=== PATIENT | female | born 1935 | race Caucasian/White ===

== ENCOUNTER 2016-09-01 09:49 | Inpatient (IN) | payer OTHER, BC ==
[~2016-09-01] VITALS: Ht 157.5 cm; Wt 84.4 kg
[~2016-09-01 09:49] MED LIST: ACETAMINOPHN-T1 EACH PO; ALENDRONATE SOD40 MG PO; AMPICILLIN TRI500 MG PO; ARICEPT10 MG PO; ASPIR-LOW81 MG PO; ASPIRIN81 M2 PO; AUGMENTIN500 MG PO; AVAPRO75 MG PO; CIPRO250 MG PO; CITALOPRAM HBR10 MG PO; DICLOFENAC SOD100 MG PO; DICLOFENAC SODI75 MG PO; DONEPEZIL HCL5 MG PO; ECOTRIN325 MG PO; ENDOCET 5-3251 EACH PO; Ecotrin PO; FLAGYL250 MG PO; FOLIC ACID1 MG PO; Feosol PO; Folvite PO; LACTINEX,FLO1 PACKET PO; LIPITOR20 MG PO; Levaquin PO; METHOTREXATE2.5 M1 PO; METHOTREXATE2.5 MG PO; METOPROLOL SUCC25 MG PO; OMEPRAZOLE20 M3 PO; PILOCARPINE HCL5 MG PO; POLYMYXIN B-TMP10 ML LEFT EYE; PriLOSEC PO; SALAGEN5 M1 PO; SALAGEN5 MG PO; SENOKOT S,PE1 TABLET PO; TRAMADOL HCL50 MG PO; TREXALL5 MG PO; Toprol XL PO; Tylenol Regular Stre PO; ULTRAM50 MG PO; VOLTAREN75 MG PO; Voltaren PO; [UNRECOGNIZED DRUG - OTHER]
[2016-09-01] MEDS ORDERED: ULTRACET1 TABLET PO (10:03)
[2016-09-01] MEDS ORDERED: IRBESARTAN75 MG PO (10:03)
[2016-09-01] MEDS ORDERED: SINEMET 25-1001 EACH PO (10:06)
[2016-09-01 11:02] LABS: EOSINOPHIL (%) 0 % (0-5); HEMATOCRIT 38.5 % (36.0-46.0); IMMATURE GRANULOCYTE (%) 0.5 % (0.0-0.7); IMMATURE GRANULOCYTE COUNT 0.1 K/uL; INSTRUMENT ABS NEUTROPHIL CT 13.2 K/uL; LYMPHOCYTE COUNT 0.6 K/uL (1.0-2.8); MCH 31.4 PG (29.0-34.0); MCHC 32.5 G/DL (30.0-36.0); MCV 96.7 FL (83-99); MEAN PLAT.VOLUME 10.4 uM^3 (9.5-12.4); MONOCYTE (%) 9.6 % (3-12); MONOCYTE COUNT 1.5 K/uL (0-0.8); NEUTROPHIL (%) 85.6 % (45-76); NEUTROPHIL COUNT 13.2 K/uL (1.8-6.4); PLATELET COUNT 147 K/uL (156-360); RBC DIS.WIDTH-CV 13.7 % (11.8-14.6); RBC DIS.WIDTH-SD 48.7 % (39-53); RED BLOOD COUNT 3.98 M/uL (3.80-5.20); WHITE BLOOD COUNT 15.4 K/uL (4.1-10.2)
[2016-09-01 11:12] LABS: CHLORIDE 105 mEq/L (99-109); POTASSIUM 3.9 mEq/L (3.7-5.4); SODIUM 140 mEq/L (136-147)
[2016-09-01 11:14] LABS: GLUCOSE 126 mg/dL (70-99)
[2016-09-01 11:15] LABS: ANION GAP 9 MEQ/L (2-14)
[2016-09-01 11:16] LABS: TOTAL BILIRUBIN 0.8 mg/dL (0.0-1.0)
[2016-09-01 11:17] LABS: ALKALINE PHOSPHATASE 64 IU/L (3-129)
[2016-09-01 11:18] LABS: GFR ESTIMATE (CALCULATED) > 59 mL/min/
[2016-09-01 11:19] LABS: UREA NITROGEN (BUN) 31 mg/dL (9-23)
[2016-09-01 11:22] LABS: TROP-I INTERPRETATION NEGATIVE; TROPONIN-I < 0.01 ng/mL (0.0-0.30)
[2016-09-01 11:55] LABS: ADD MIUA? YES; BILIRUBIN NEGATIVE; BLOOD MODERATE; COLOR YELLOW ((YELLOW)); GLUCOSE (STRIP) NEGATIVE; KETONES NEGATIVE; LEUKOCYTES LARGE; NITRITE NEGATIVE; PROTEIN (STRIP) 30; SPECIFIC GRAVITY 1.014 (1.000-1.030); UROBILINOGEN 0.2 MG/DL (0.2-1.0)
[2016-09-01 13:22] LABS: BACTERIA 3+ /HPF; EPITHELIAL CELLS RARE /HPF; MUCUS NONE SEEN /LPF; UCUL ADDED? YES
[2016-09-01] MEDS ORDERED: PRILOSEC20 MG PO (13:58)
[2016-09-01 16:00] VITALS: BP 148/63
[2016-09-01 20:07] VITALS: BP 125/55
[2016-09-02 00:04] VITALS: BP 124/60
[2016-09-02 04:21] VITALS: BP 156/68
[2016-09-02 07:02] LABS: ANION GAP 8 MEQ/L (2-14); CHLORIDE 106 MEQ/L (99-109); GFR ESTIMATE (CALCULATED) > 59 mL/min/; GLUCOSE 96 mg/dL (70-99); POTASSIUM 3.5 MEQ/L (3.7-5.4); SAMPLE HEMOLYSIS CHECK 0; SAMPLE ICTERIC CHECK 0; SAMPLE LIPEMIA CHECK 0; SODIUM 138 MEQ/L (136-147); UREA NITROGEN (BUN) 20 mg/dL (9-23)
[2016-09-02 07:04] LABS: HEMATOCRIT 32.9 % (36.0-46.0); MCH 31.8 PG (29.0-34.0); MCHC 32.5 G/DL (30.0-36.0); MCV 97.6 FL (83-99); MEAN PLAT.VOLUME 10.8 uM^3 (9.5-12.4); PLATELET COUNT 116 K/uL (156-360); RBC DIS.WIDTH-CV 13.9 % (11.8-14.6); RBC DIS.WIDTH-SD 49.3 % (39-53); RED BLOOD COUNT 3.37 M/uL (3.80-5.20)
[2016-09-02 09:06] VITALS: BP 131/62
[2016-09-02 12:10] VITALS: BP 148/74
[2016-09-02 16:01] VITALS: BP 140/72
[2016-09-02 20:01] VITALS: BP 137/63
[2016-09-03 01:00] VITALS: BP 128/60
[2016-09-03 05:27] VITALS: BP 140/88
[2016-09-03 08:30] VITALS: BP 165/77
[2016-09-03 10:51] LABS: ANION GAP 5 MEQ/L (2-14); CHLORIDE 106 MEQ/L (99-109); POTASSIUM 3.5 MEQ/L (3.7-5.4); SAMPLE HEMOLYSIS CHECK 0; SAMPLE ICTERIC CHECK 0; SAMPLE LIPEMIA CHECK 0; SODIUM 135 MEQ/L (136-147)
[2016-09-03 10:56] LABS: GFR ESTIMATE (CALCULATED) > 59 mL/min/; GLUCOSE 119 mg/dL (70-99); UREA NITROGEN (BUN) 11 mg/dL (9-23)
[2016-09-03 11:50] VITALS: BP 175/81; BP 200/81
[2016-09-03 16:43] VITALS: BP 185/87
[2016-09-03 19:00] VITALS: BP 161/72
[2016-09-04 00:11] VITALS: BP 154/72
[2016-09-04 04:27] VITALS: BP 142/64
[2016-09-04] MEDS ORDERED: KEFLEX500 MG PO (07:22)
[2016-09-04 07:30] LABS: ANION GAP 7 MEQ/L (2-14); CHLORIDE 107 MEQ/L (99-109); GFR ESTIMATE (CALCULATED) > 59 mL/min/; GLUCOSE 92 mg/dL (70-99); POTASSIUM 3.9 MEQ/L (3.7-5.4); SAMPLE HEMOLYSIS CHECK 0; SAMPLE ICTERIC CHECK 0; SAMPLE LIPEMIA CHECK 0; SODIUM 141 MEQ/L (136-147); UREA NITROGEN (BUN) 11 mg/dL (9-23)
[2016-09-04 08:04] VITALS: BP 135/67
== END 2016-09-04 15:30 | disposition home health service (06) | DRG 690 ==
LOC: EME 09:49 → EDOF 13:11 → 5WEST 15:53
PROVIDERS: Emergency Medicine; Internal Medicine; Nurse Practitioner Adult Health
DX: N39.0 Urinary tract infection, site not specified (principal); B96.20 Unspecified Escherichia coli [E. coli] as the cause of diseases classified elsewhere; E87.6 Hypokalemia; G31.83 Neurocognitive disorder with Lewy bodies; I10 Essential (primary) hypertension; J44.9 Chronic obstructive pulmonary disease, unspecified; F32.9 Major depressive disorder, single episode, unspecified; K21.9 Gastro-esophageal reflux disease without esophagitis; E78.5 Hyperlipidemia, unspecified; M06.9 Rheumatoid arthritis, unspecified; D69.6 Thrombocytopenia, unspecified; Z79.82 Long term (current) use of aspirin; Z88.5 Allergy status to narcotic agent; Z91.040 Latex allergy status; Z87.891 Personal history of nicotine dependence; Z91.81 History of falling
CPT/HCPCS: 70450; 71020; 72131; 80048; 80053; 81003; 83605; 84484; 85025; 85027; 87077; 87086; 87186; 93005; 99202; 99281; 99285; G0378; G8978 GP CJ; J0696; J1650; J7030; J7050

== ENCOUNTER 2017-06-17 08:23 | Observation (INO) | payer OTHER, BC ==
[~2017-06-17 08:23] MED LIST changes: +ASPIR 8181 M1 PO; -ASPIRIN81 M2 PO; +IRBESARTAN75 MG PO; +KEFLEX500 MG PO; +PRILOSEC20 MG PO; +SINEMET 25-1001 EACH PO; +ULTRACET1 TABLET PO
[2017-06-17 08:48] LABS: BASOPHIL (%) 0.4 % (0-1); EOSINOPHIL (%) 0.8 % (0-5); EOSINOPHIL COUNT 0.1 K/uL (0-0.3); HEMOGLOBIN 13.4 G/DL (11.9-15.5); IMMATURE GRANULOCYTE (%) 0.5 % (0.0-0.7); LYMPHOCYTE (%) 9.6 % (15-42); MCH 31.3 PG (29.0-34.0); MCHC 33.5 G/DL (30.0-36.0); MCV 93.5 FL (83-99); MONOCYTE (%) 7.7 % (3-12); MONOCYTE COUNT 0.8 K/uL (0-0.8); NEUTROPHIL COUNT 8.8 K/uL (1.8-6.4); PLATELET COUNT 160 K/uL (156-360); RBC DIS.WIDTH-CV 13.5 % (11.8-14.6); RBC DIS.WIDTH-SD 46.4 % (39-53); RED BLOOD COUNT 4.28 M/uL (3.80-5.20); WHITE BLOOD COUNT 10.8 K/uL (4.1-10.2)
[2017-06-17 09:03] LABS: AMYLASE 43 IU/L (1-118); CHLORIDE 106 mEq/L (99-109); POTASSIUM 3.9 mEq/L (3.7-5.4); SODIUM 137 mEq/L (136-147)
[2017-06-17 09:05] LABS: GLUCOSE 104 mg/dL (70-99)
[2017-06-17 09:08] LABS: CREATININE 0.8 mg/dL (0.6-1.3); GFR ESTIMATE (CALCULATED) > 59 mL/min/; SERUM ETHYL ALCOHOL < 10 mg/dL; TROP-I INTERPRETATION NEGATIVE; TROPONIN-I < 0.01 ng/mL (0.0-0.30)
[2017-06-17 09:09] LABS: CK-MB 1.9 ng/mL (0.0-4.9); UREA NITROGEN (BUN) 29 mg/dL (9-23)
[2017-06-17 09:11] LABS: LIPASE 65 U/L (1.0-51.0)
[2017-06-17 09:12] LABS: CKMB RELATIVE INDEX 2.8 (0.0-3.9); CREATINE KINASE 69 IU/L (1-294); TOTAL CK 69 IU/L (1-294)
[2017-06-17 09:38] LABS: APPEARANCE SL.HAZY ((CLEAR)); BILIRUBIN NEGATIVE; BLOOD NEGATIVE; COLOR YELLOW ((YELLOW)); GLUCOSE (STRIP) NEGATIVE; KETONES NEGATIVE; LEUKOCYTES MODERATE; NITRITE POSITIVE; PROTEIN (STRIP) NEGATIVE; SPECIFIC GRAVITY 1.018 (1.000-1.030); UROBILINOGEN 0.2 MG/DL (0.2-1.0)
[2017-06-17 09:48] LABS: BACTERIA 3+ /HPF; EPITHELIAL CELLS NONE SEEN /HPF; MUCUS NONE SEEN /LPF; RED BLOOD CELLS 0-5 /HPF (0-5); UCUL ADDED? YES; WHITE BLOOD CELLS 30-40 /HPF (0-5)
[2017-06-17 09:51] LABS: AMPHETAMINE NEGATIVE (500 ng/mL); BARBITURATES NEGATIVE (200 ng/mL); BENZODIAZEPINES NEGATIVE (150 ng/mL); BUPRENORPHINE NEGATIVE (10 ng/mL); COCAINE NEGATIVE (150 ng/mL); METHADONE NEGATIVE (200 ng/mL); METHAMPHETAMINE NEGATIVE (500 ng/mL); OPIATES (MORPHINE) PRESUMPTIVE POSITIVE (100 ng/mL); OXYCODONE NEGATIVE (100 ng/mL); PHENCYCLIDINE NEGATIVE (25 ng/mL); PROPOXYPHENE NEGATIVE (300 ng/mL); THC CANNABINOIDS NEGATIVE (50 ng/mL); TRICYCLIC ANTIDEPRESSANTS NEGATIVE (300 ng/mL)
[2017-06-17] MEDS ORDERED: LEUCOVORIN CALCI5 MG PO (12:24)
[2017-06-17] MEDS ORDERED: METHOTREXATE2.5 MG PO (12:25)
[2017-06-17 20:19] VITALS: BP 140/88
[2017-06-18 00:11] VITALS: BP 173/74
[2017-06-18 05:15] VITALS: BP 143/73
[2017-06-18 05:43] LABS: HEMOGLOBIN 12.5 G/DL (11.9-15.5); MCH 30.6 PG (29.0-34.0); MCHC 32.1 G/DL (30.0-36.0); MCV 95.4 FL (83-99); PLATELET COUNT 173 K/uL (156-360); RBC DIS.WIDTH-CV 13.8 % (11.8-14.6); RBC DIS.WIDTH-SD 48.3 % (39-53); RED BLOOD COUNT 4.09 M/uL (3.80-5.20); WHITE BLOOD COUNT 8.4 K/uL (4.1-10.2)
[2017-06-18 06:05] LABS: CHLORIDE 103 MEQ/L (99-109); CREATININE 0.8 MG/DL (0.6-1.3); GFR ESTIMATE (CALCULATED) > 59 mL/min/; GLUCOSE 124 mg/dL (70-99); POTASSIUM 4.2 MEQ/L (3.7-5.4); SODIUM 139 MEQ/L (136-147); UREA NITROGEN (BUN) 23 mg/dL (9-23)
[2017-06-18 09:02] VITALS: BP 134/60
[2017-06-18 11:24] VITALS: BP 122/59
[2017-06-18] MEDS ORDERED: CEFTIN500 MG PO (12:16)
== END 2017-06-18 15:22 | disposition home or self-care (01) ==
LOC: TRA 08:23 → EDOF 10:31 → 3EAST 10:31 → EDOF 10:31 → ENRESERV 10:40 → EDOF 10:43 → ENRESERV 15:41 → 3EAST 20:06
PROVIDERS: Emergency Medicine; Internal Medicine
PROC: 3E0234Z Introduction of Serum, Toxoid and Vaccine into Muscle, Percutaneous Approach (ICD-10-PCS; principal; 2017-06-17)
DX: S06.339A Contusion and laceration of cerebrum, unspecified, with loss of consciousness of unspecified duration, initial encounter (principal); S01.01XA Laceration without foreign body of scalp, initial encounter; S80.01XA Contusion of right knee, initial encounter; B96.20 Unspecified Escherichia coli [E. coli] as the cause of diseases classified elsewhere; N39.0 Urinary tract infection, site not specified; I10 Essential (primary) hypertension; F03.90 Unspecified dementia, unspecified severity, without behavioral disturbance, psychotic disturbance, mood disturbance, and anxiety; W18.30XA Fall on same level, unspecified, initial encounter; Y92.129 Unspecified place in nursing home as the place of occurrence of the external cause; D69.6 Thrombocytopenia, unspecified; M06.9 Rheumatoid arthritis, unspecified; Z87.440 Personal history of urinary (tract) infections; J44.9 Chronic obstructive pulmonary disease, unspecified; Z86.73 Personal history of transient ischemic attack (TIA), and cerebral infarction without residual deficits; H35.30 Unspecified macular degeneration; E78.5 Hyperlipidemia, unspecified; Z88.5 Allergy status to narcotic agent; Z88.8 Allergy status to other drugs, medicaments and biological substances; Z91.040 Latex allergy status; Z23 Encounter for immunization
CPT/HCPCS: 70450; 71260; 72125; 72129; 72132; 73030; 73560; 74177; 80048; 81003; 82150; 82550; 82553; 83690; 84484; 84999; 85025; 85027; 86850; 86900; 86901; 87077; 87086; 87186; 97530 GO; G0378; G0480; G8978 GP CJ; G8979 GP CI; G8980 CJ; G8987 GO CJ; G8988 CI; G8989 CJ; J0696; J2270; J2405

== ENCOUNTER 2017-06-20 17:09 | Inpatient (IN) | payer OTHER ==
[~2017-06-20] VITALS: Ht 160 cm; Wt 92.1 kg
[~2017-06-20 17:09] MED LIST changes: +CEFTIN500 MG PO; -CITALOPRAM HBR10 MG PO; +CITALOPRAM HBR20 MG PO; +LEUCOVORIN CALCI5 MG PO
[2017-06-20 20:05] LABS: APPEARANCE TURBID ((CLEAR)); BILIRUBIN NEGATIVE; BLOOD MODERATE; COLOR AMBER ((YELLOW)); GLUCOSE (STRIP) NEGATIVE; KETONES NEGATIVE; LEUKOCYTES LARGE; NITRITE NEGATIVE; PROTEIN (STRIP) 30; SPECIFIC GRAVITY 1.024 (1.000-1.030); UROBILINOGEN 0.2 MG/DL (0.2-1.0)
[2017-06-20 20:36] LABS: ALBUMIN 3.4 g/dL (3.2-4.8)
[2017-06-20 20:37] LABS: CHLORIDE 107 mEq/L (99-109); POTASSIUM 3.8 mEq/L (3.7-5.4); SODIUM 140 mEq/L (136-147)
[2017-06-20 20:39] LABS: TOTAL PROTEIN 5.9 g/dL (6.4-8.3)
[2017-06-20 20:41] LABS: GLUCOSE 92 mg/dL (70-99); TOTAL BILIRUBIN 0.5 mg/dL (0.0-1.0)
[2017-06-20 20:42] LABS: ALKALINE PHOSPHATASE 64 IU/L (3-129)
[2017-06-20 20:43] LABS: CREATININE 0.8 mg/dL (0.6-1.3); GFR ESTIMATE (CALCULATED) > 59 mL/min/
[2017-06-20 20:44] LABS: AST (GOT) 18 IU/L (2-34); UREA NITROGEN (BUN) 28 mg/dL (9-23)
[2017-06-20 20:46] LABS: ALT (GPT) 13 IU/L (3-49)
[2017-06-20 20:49] LABS: TROP-I INTERPRETATION NEGATIVE; TROPONIN-I 0.02 ng/mL (0.0-0.30)
[2017-06-20 20:59] LABS: BACTERIA 3+ /HPF; CALCIUM OXALATE CRYSTALS 2+ /HPF; EPITHELIAL CELLS 2+ /HPF; MUCUS NONE SEEN /LPF; RED BLOOD CELLS 0-5 /HPF (0-5); UCUL ADDED? YES; WHITE BLOOD CELLS 20-30 /HPF (0-5)
[2017-06-20 21:06] LABS: HEMATOCRIT 33.9 % (36.0-46.0); HEMOGLOBIN 11.2 G/DL (11.9-15.5); MCH 31.4 PG (29.0-34.0); RBC DIS.WIDTH-CV 13.7 % (11.8-14.6); RBC DIS.WIDTH-SD 47.6 % (39-53); RED BLOOD COUNT 3.57 M/uL (3.80-5.20); WHITE BLOOD COUNT 6.1 K/uL (4.1-10.2)
[2017-06-20 21:44] LABS: PLATELET CLUMPS PRESENT - PLATELET COUNTS APPEARS DECREASED
[2017-06-20 21:46] LABS: PLATELET COUNT UNABLE TO REPORT K/uL (156-360)
[2017-06-21 03:10] LABS: TROP-I INTERPRETATION NEGATIVE; TROPONIN-I < 0.01 ng/mL (0.0-0.30)
[2017-06-21 06:39] VITALS: BP 147/70
[2017-06-21 08:14] VITALS: BP 148/71
[2017-06-21 10:42] VITALS: BP 128/95
[2017-06-21 14:32] LABS: HEMATOCRIT 35.6 % (36.0-46.0); HEMOGLOBIN 11.8 G/DL (11.9-15.5); MCH 31.5 PG (29.0-34.0); MCHC 33.1 G/DL (30.0-36.0); MCV 94.9 FL (83-99); PLATELET COUNT 179 K/uL (156-360); RBC DIS.WIDTH-CV 13.6 % (11.8-14.6); RBC DIS.WIDTH-SD 47.3 % (39-53); RED BLOOD COUNT 3.75 M/uL (3.80-5.20); WHITE BLOOD COUNT 7.1 K/uL (4.1-10.2)
[2017-06-21 14:54] LABS: CHLORIDE 109 MEQ/L (99-109); POTASSIUM 4.1 MEQ/L (3.7-5.4); SODIUM 143 MEQ/L (136-147)
[2017-06-21 15:03] LABS: TROP-I INTERPRETATION NEGATIVE; TROPONIN-I 0.02 ng/mL (0.0-0.30)
[2017-06-21 15:12] LABS: CREATININE 0.8 MG/DL (0.6-1.3); GFR ESTIMATE (CALCULATED) > 59 mL/min/; GLUCOSE 106 mg/dL (70-99); UREA NITROGEN (BUN) 20 mg/dL (9-23)
[2017-06-21 16:10] VITALS: BP 142/92
[2017-06-21 19:18] VITALS: BP 148/73
[2017-06-21 23:27] VITALS: BP 134/78
[2017-06-22 03:32] VITALS: BP 151/70
[2017-06-22 07:58] VITALS: BP 170/83
[2017-06-22 11:15] VITALS: BP 160/71
[2017-06-22 15:23] VITALS: BP 137/64
[2017-06-22 23:12] VITALS: BP 140/66
[2017-06-23 07:31] VITALS: BP 187/84
[2017-06-23 08:58] LABS: HEMATOCRIT 37.4 % (36.0-46.0); HEMOGLOBIN 12.3 G/DL (11.9-15.5); MCHC 32.9 G/DL (30.0-36.0); MCV 94.2 FL (83-99); PLATELET COUNT 206 K/uL (156-360); RBC DIS.WIDTH-CV 13.3 % (11.8-14.6); RBC DIS.WIDTH-SD 46.2 % (39-53); RED BLOOD COUNT 3.97 M/uL (3.80-5.20); WHITE BLOOD COUNT 6.8 K/uL (4.1-10.2)
[2017-06-23 09:36] LABS: CHLORIDE 103 MEQ/L (99-109); CREATININE 0.9 MG/DL (0.6-1.3); GFR ESTIMATE (CALCULATED) > 59 mL/min/; GLUCOSE 112 mg/dL (70-99); POTASSIUM 3.8 MEQ/L (3.7-5.4); SODIUM 139 MEQ/L (136-147); UREA NITROGEN (BUN) 19 mg/dL (9-23)
[2017-06-23 17:38] VITALS: BP 148/80
[2017-06-24 00:29] VITALS: BP 164/71
[2017-06-24 07:36] VITALS: BP 145/83
[2017-06-24 16:45] VITALS: BP 124/58
[2017-06-24 23:31] VITALS: BP 109/54
[2017-06-25 07:33] VITALS: BP 155/78
== END 2017-06-25 15:24 | disposition home or self-care (01) | DRG 71 ==
LOC: EME 17:09 → 5EAST 23:09 → EDOF 23:09 → ENRESERV 23:10 → 5EAST 06-21 04:44
PROVIDERS: Emergency Medicine; Hospitalist; Internal Medicine
DX: G93.41 Metabolic encephalopathy (principal); N39.0 Urinary tract infection, site not specified; J44.9 Chronic obstructive pulmonary disease, unspecified; G30.9 Alzheimer's disease, unspecified; F02.81 Dementia in other diseases classified elsewhere, unspecified severity, with behavioral disturbance; I10 Essential (primary) hypertension; G20 Parkinson's disease; F32.9 Major depressive disorder, single episode, unspecified; G89.29 Other chronic pain; H35.30 Unspecified macular degeneration; E78.5 Hyperlipidemia, unspecified; Z86.73 Personal history of transient ischemic attack (TIA), and cerebral infarction without residual deficits; Z87.440 Personal history of urinary (tract) infections; Z87.891 Personal history of nicotine dependence; K21.9 Gastro-esophageal reflux disease without esophagitis; M06.9 Rheumatoid arthritis, unspecified
CPT/HCPCS: 70450; 71260; 72125; 72129; 72132; 73030; 73560; 74177; 80048; 80053; 81003; 82150; 82550; 82553; 82948; 83690; 84484; 84999; 85025; 85027; 85049; 86850; 86900; 86901; 87040; 87077; 87086; 87186; 93005; 97530 GO; 99281; 99285; G0378; G0480; G8978 GP CJ; G8979 GP CI; G8980 CJ; G8987 GO CJ; G8988 CI; G8989 CJ; J0696; J1630; J1815; J2060; J2270; J2405; J7030